=== PATIENT | male | born 1985 | race African-American/Black ===

== ENCOUNTER 2021-01-27 11:03 | Outpatient (REF) | payer BC, SELFPAY ==
[2021-01-27 11:29] LABS: COVID-19 Test Negative (Negative)
== END 2021-01-27 11:04 | disposition home or self-care (01) ==
LOC: HO.LAB 11:03
PROVIDERS: Visit Provider Internal Medicine
DX: Z20.822 Contact with and (suspected) exposure to COVID-19 (principal)
CPT/HCPCS: 36415; 87635; C9803